=== PATIENT | female | born 1940 ===

== ENCOUNTER 2017-11-05 18:40 | Inpatient (IN) | payer MEDICAID, OTHER ==
[2017-11-05] MEDS ORDERED: Iohexol 240 (50 ml) PO ONE (19:56)
--- NOTE | 2017-11-05 20:14 | ED PDOC ---
HPI: Abdomen Chief Complaint (Provider): right side abdominal pain History Per: Patient History/Exam Limitations: no limitations Associated Symptoms: Loss Of Appetite, Constipation. denies: Fever, Chills, Nausea, Vomiting, Diarrhea Exacerbating Factors: None Alleviating Factors: None Last Bowel Movement: Today Additional History Per: Patient <Patricio Mann - Last Filed: 11/05/17 21:55> <Lynn Wakefield - Last Filed: 11/06/17 17:33> Chief Complaint (Nursing): Abdominal Pain Additional Complaint(s): 77 year old female presents with complaints of right sided abdominal pain for past week, that worsened overnight. Pain is 8/10, non-radiating, she has loss of appetite, without associated nausea or vomiting, no diarrhea, constipation x 1 day-passed hard stool this AM. She tolerated water today but did not eat. She was recently hospitalized here for URI and asthma, discharged on PO antibiotics for 4 days which she completed. She denies medical history. PMD: none Medications: none (Patricio Mann) Supervising Attending Note <Patricio Mann - Last Filed: 11/05/17 21:55> - Supervising Attending Note The Documented history was done by the: Physician Hoe Runner, Attending Physician The documented physical exam was done by the: Physician Hoe Runner, Attending Physician - Attestation: I have personally seen and examined this patient.: Yes I have fully participated in the care of the patient.: Yes I have reviewed all pertinent clinical information: Yes <Lynn Wakefield - Last Filed: 11/06/17 17:33> - Notes: Notes:: RLQ ttp with roluis a SCHMITZ vice president of software development who evaluated pt in ER. 1230a CT scan equivocal for appendicitis but has possible pyelonephritis. Rx'd with Zosyn earlier due to possible appendicitis. AINSLEY Jose for hospitalization. (Lynn Wakefield) Past Medical History - Medical History PMH: No Chronic Diseases - Family History Family History: States: Unknown Family Hx - Immunization History Hx Tetanus Toxoid Vaccination: No Hx Influenza Vaccination: Yes (2013) Hx Pneumococcal Vaccination: No <Patricio Mann - Last Filed: 11/05/17 21:55> <Lynn Wakefield - Last Filed: 11/06/17 17:33> Vital Signs: Last Vital Signs Temp 99 F 11/06/17 16:21 Pulse 82 11/06/17 16:21 Resp 20 11/06/17 16:21 BP 121/72 11/06/17 16:21 Pulse Ox 96 11/06/17 16:21 - Home Medications Home Medications: Ambulatory Orders Medication Instructions Recorded No Known Home Med 11/06/17 - Allergies Allergies/Adverse Reactions: Allergies Allergy/AdvReac Type Severity Reaction Status Date / Time No Known Allergies Allergy Verified 11/05/17 18:46 Review of Systems Constitutional: Negative for: Fever, Chills, Sweats, Weight loss Eyes: Negative for: Pain ENT: Negative for: Ear Pain, Nose Pain Cardiovascular: Negative for: Chest Pain, Palpitations, Orthopnea Respiratory: Negative for: Cough, Shortness of Breath Gastrointestinal: Positive for: Abdominal Pain, Constipation. Negative for: Nausea, Vomiting, Diarrhea, Rectal Pain Genitourinary Female: Negative for: Dysuria, Frequency, Incontinence, Hematuria Neurological: Negative for: Weakness, Numbness, Confusion, Seizures, Altered Mental Status <Patricio Mann - Last Filed: 11/05/17 21:55> Physical Exam - Physical Exam Appears: Positive for: Uncomfortable Head Exam: Positive for: ATRAUMATIC, NORMAL INSPECTION, NORMOCEPHALIC Skin: Positive for: Normal Color, Warm, DRY Eye Exam: Positive for: EOMI, Normal appearance, PERRL ENT: Positive for: Normal ENT Inspection Cardiovascular/Chest: Positive for: Regular Rate, Rhythm. Negative for: Murmur , Bradycardia, Tachycardia Respiratory: Positive for: Normal Breath Sounds. Negative for: Crackles, Rales , Rhonchi, Stridor, Wheezing Gastrointestinal/Abdominal: Positive for: Bowel Sounds (hypoactive), Soft, Tenderness (right lower quadrant, rovsings +, psoas neg). Negative for: Mass, Distended Back: Positive for: Normal Inspection. 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 Negative for: Motor/Sensory Deficits <Patricio Mann - Last Filed: 11/05/17 21:55> - Laboratory Results Result Diagrams: 11/05/17 20:20 11/05/17 20:20 - ECG O2 Sat by Pulse Oximetry: 96 <Patricio Mann - Last Filed: 11/05/17 21:55> - Laboratory Results Result Diagrams: 11/06/17 05:25 11/06/17 05:25 <Lynn Wakefield - Last Filed: 11/06/17 17:33> - Progress ED Course And Treament: 77 year old female with right sided abdominal pain, hx of cholecystectomy, no urinary symptoms. History of multiple abdominal surgeries. RULE OUT APPENDICITIS, unlikely SBO --CBC --CMP --LIPASE --TYLENOL --CT A/P --URINE DIP --BLOOD CULTURE Patient seen and examined with Dr. Wakefield, who agrees with the assessment and plan delineated above. TIME 21:50 Labs reviewed, leukocytosis of 17.9 IV zosyn ordered Case signed out to Dr. Wakefield pending CT Abdomen/Pelvis. (Patricio Mann) Disposition - Disposition Disposition Time: 21:55 <Patricio Mann - Last Filed: 11/05/17 21:55> Counseled Patient/Family Regarding: Studies Performed, Diagnosis - Pt Status Changed To: Hospital Disposition Of: Observation - POA Present On Arrival: None <Lynn Wakefield - Last Filed: 11/06/17 17:33> - Clinical Impression Clinical Impression: Abdominal pain - Disposition Condition: FAIR
[2017-11-05] MEDS ORDERED: Iohexol 240 (50 ml) ONE (20:19)
[2017-11-05 20:29] LABS: BASO # 0.2 K/uL (0.0-0.2); BASO % 0.8 % (0.0-2.0); EOS # 0.2 K/uL (0.0-0.7); EOS % 0.9 % (0.0-4.0); HEMOGLOBIN 12.9 g/dL (12.0-16.0); LYMPH % 16.6 % (20.0-40.0); MEAN CELL VOLUME 88.1 fl (81.0-99.0); MEAN CORPUSCULAR HEMOGLOBIN 29.2 pg (27.0-31.0); MEAN CORPUSCULAR HGB CONC 33.2 g/dL (33.0-37.0); MEAN PLATELET VOLUME 9.4 fl (7.2-11.7); MONO # 1.7 K/uL (0.0-0.8); MONO % 9.5 % (0.0-10.0); NEUT # 12.9 K/uL (1.8-7.0); NEUT % 72.2 % (50.0-75.0); RBC 4.42 Mil/uL (3.80-5.20); RED CELL DISTRIBUTION WIDTH 15.2 % (11.5-14.5); WHITE BLOOD COUNT 17.9 K/uL (4.8-10.8)
[2017-11-05 20:41] LABS: ALBUMIN 3.8 g/dL (3.5-5.0); ALT/SGPT 49 U/L (9-52); AST/SGOT 57 U/L (14-36); BLOOD UREA NITROGEN 14 mg/dl (7-17); CALCIUM 8.9 mg/dL (8.4-10.2); GFR AFRICAN-AMERICAN > 60; GFR NON-AFRICAN AMERICAN > 60; LIPASE 88 U/L (23-300)
[2017-11-05] MEDS ORDERED: Piperacillin/Tazobact 3.375 GM in Sodium Chloride 0.9% 100 ML IV STA (21:15)
[2017-11-05] MEDS ORDERED: Piperacillin/Tazobact 3.375 gm Inj IVPB ONE (21:48)
[2017-11-05] MEDS ORDERED: Iohexol 300 100 ML IJ ONE (22:21)
[2017-11-05] MEDS ORDERED: Sodium Chloride 0.9% 100 ML ONE (22:21)
--- NOTE | 2017-11-06 00:06 | CP.PCM.CON ---
<Kal Conner - Last Filed: 11/06/17 00:31> History of Present Illness - History of Present Illness History of Present Illness: SURGERY CONSULT NOTE FOR DR. SALEEM 77F presents with right lower quadrant abdominal pain that started last night. She states she has never had this pain before. Patient denies nausea, vomiting, fevers, chills. She has not been able to eat since the pain started. She denies any change in bowel function. Denies any urinary symptoms, no dysuria. PMH: denies, possible HTN PSH: , lap cholecystectomy Social: denies tobacco, alcohol, illicit drug use Allergies: NKDA Past Patient History - Past Social History Smoking Status: Never Smoked - CARDIAC Hx Cardiac Disorders: No - PULMONARY Hx Respiratory Disorders: No - NEUROLOGICAL Hx Neurological Disorder: No - HEENT Hx HEENT Problems: No - RENAL Hx Chronic Kidney Disease: No - ENDOCRINE/METABOLIC Hx Endocrine Disorders: No - HEMATOLOGICAL/ONCOLOGICAL Hx Blood Disorders: No - INTEGUMENTARY Hx Dermatological Problems: No - MUSCULOSKELETAL/RHEUMATOLOGICAL Hx Musculoskeletal Disorders: No - GASTROINTESTINAL Hx Gastrointestinal Disorders: No - GENITOURINARY/GYNECOLOGICAL Hx Genitourinary Disorders: No - PSYCHIATRIC Hx Psychophysiologic Disorder: No Hx Substance Use: No Meds Allergies/Adverse Reactions: Allergies Allergy/AdvReac Type Severity Reaction Status Date / Time No Known Allergies Allergy Verified 11/05/17 18:46 Physical Exam - Constitutional Appears: Well, Non-toxic, No Acute Distress - Head Exam Head Exam: ATRAUMATIC - Eye Exam Eye Exam: EOMI, PERRL - Respiratory Exam Respiratory Exam: Clear to Auscultation Bilateral, NORMAL BREATHING PATTERN - Cardiovascular Exam Cardiovascular Exam: REGULAR RHYTHM, +S1, +S2 - GI/Abdominal Exam GI & Abdominal Exam: Soft, Tenderness (right lower quadrant ). absent: Distended, Firm, Guarding, Rebound, Rigid Additional comments: bruise in RLQ from injection - Extremities Exam Extremities exam: Negative for: pedal edema, tenderness - Neurological Exam Neurological exam: Alert, Oriented x3 - Psychiatric Exam Psychiatric exam: Normal Affect, Normal Mood - Skin Skin Exam: Dry, Intact, Normal Color, Warm Results - Vital Signs Recent Vital Signs: Last Vital Signs Temp 98.1 F 11/05/17 18:47 Pulse 88 11/05/17 18:47 Resp 18 11/05/17 18:47 BP 172/97 H 11/05/17 18:47 Pulse Ox 96 11/05/17 21:56 - Labs Result Diagrams: 11/05/17 20:20 11/05/17 20:20 Labs: Laboratory Results - last 24 hr 11/05/17 11/05/17 11/05/17 20:20 20:20 20:20 WBC 17.9 H RBC 4.42 Hgb 12.9 Hct 38.9 MCV 88.1 MCH 29.2 MCHC 33.2 RDW 15.2 H Plt Count 235 MPV 9.4 Neut % (Auto) 72.2 Lymph % (Auto) 16.6 L [place] % (Auto) 9.5 Eos % (Auto) 0.9 Baso % (Auto) 0.8 Neut # (Auto) 12.9 H Lymph # (Auto) 3.0 [place] # (Auto) 1.7 H Eos # (Auto) 0.2 Baso # (Auto) 0.2 Sodium 142 Potassium 4.0 Chloride 101 Carbon Dioxide 26 Anion Gap 19 BUN 14 Creatinine 0.5 L Est GFR ( Amer) > 60 Est GFR (Non-Af Amer) > 60 Random Glucose 111 H Lactic Acid 1.0 Calcium 8.9 Total Bilirubin 0.7 AST 57 H ALT 49 Alkaline Phosphatase 82 Total Protein 7.4 Albumin 3.8 Globulin 3.6 Albumin/Globulin Ratio 1.0 Lipase 88 Assessment & Plan - Assessment and Plan (Free Text) Assessment: 77F with abdominal pain. r/o appendicitis CT - enlarged appendix with no inflammation. right kidney stranding/ inflammation Plan: NPO IVF Pain control Nausea Control Antibiotics UA Re-examine in AM with Dr. Saleem Discussed with Dr. Harper Conner, PGY2 <Benedict Saleem - Last Filed: 11/06/17 15:28> History of Present Illness - History of Present Illness History of Present Illness: Patient was seen and examined at the bedside. Agree with resident's note above. States that she had right sided abdominal pain radiating to the right side of the abdomen for the last 10 days, no fever or chills, no nausea, no vomiting, no diarrhea or constipation. Meds - Medications Medications: Current Medications Acetaminophen (Tylenol 325mg Tab) 650 mg PO Q6 PRN PRN Reason: Fever >100.4 F Sodium Chloride (Sodium Chloride 0.9%) 1,000 mls @ 150 mls/hr IV .Q6H40M ISAC Stop: 11/07/17 00:35 Last Admin: 11/06/17 08:58 Dose: 150 mls/hr Piperacillin Sod/Tazobactam (Sod 3.375 gm/ Sodium Chloride) 100 mls @ 100 mls/ hr IVPB Q6 ISAC PRN Reason: Protocol Last Admin: 11/06/17 15:11 Dose: 100 mls/hr Morphine Sulfate (Morphine) 4 mg IVP Q4 PRN PRN Reason: Pain, severe (8-10) Ondansetron HCl (Zofran Inj) 4 mg IVP Q4 PRN PRN Reason: Nausea/Vomiting Physical Exam - GI/Abdominal Exam Additional comments: soft, very mildly tender in the RUQ and right side of the abdomen, ND, BS+, no rebound, no guarding, well healed scars from prior surgeries - Back Exam Additional comments: very mild right sided CVA tenderness Results - Vital Signs Recent Vital Signs: Last Vital Signs Temp 98.5 F 11/06/17 08:11 Pulse 70 11/06/17 08:11 Resp 18 11/06/17 08:11 BP 105/64 11/06/17 08:11 Pulse Ox 96 11/06/17 08:11 - Labs Result Diagrams: 11/06/17 05:25 11/06/17 05:25 Labs: Laboratory Results - last 24 hr 11/05/17 11/05/17 11/05/17 20:20 20:20 20:20 WBC 17.9 H RBC 4.42 Hgb 12.9 Hct 38.9 MCV 88.1 MCH 29.2 MCHC 33.2 RDW 15.2 H Plt Count 235 MPV 9.4 Neut % (Auto) 72.2 Lymph % (Auto) 16.6 L [place] % (Auto) 9.5 Eos % (Auto) 0.9 Baso % (Auto) 0.8 Neut # (Auto) 12.9 H Lymph # (Auto) 3.0 [place] # (Auto) 1.7 H Eos # (Auto) 0.2 Baso # (Auto) 0.2 PT INR APTT Sodium 142 Potassium 4.0 Chloride 101 Carbon Dioxide 26 Anion Gap 19 BUN 14 Creatinine 0.5 L Est GFR ( Amer) > 60 Est GFR (Non-Af Amer) > 60 Random Glucose 111 H Lactic Acid 1.0 Calcium 8.9 Total Bilirubin 0.7 AST 57 H ALT 49 Alkaline Phosphatase 82 Total Protein 7.4 Albumin 3.8 Globulin 3.6 Albumin/Globulin Ratio 1.0 Lipase 88 Urine Color Urine Clarity Urine pH Ur Specific [place] Urine Protein Urine Glucose (UA) Urine Ketones Urine Blood Urine Nitrate Urine Bilirubin Urine Urobilinogen Ur Leukocyte Esterase Urine RBC (Auto) Urine Microscopic WBC 11/06/17 11/06/17 11/06/17 01:11 01:11 05:25 WBC 14.9 H RBC 4.11 Hgb 12.1 Hct 36.0 MCV 87.7 MCH 29.5 MCHC 33.6 RDW 15.4 H Plt Count 238 MPV 9.3 Neut % (Auto) 65.1 Lymph % (Auto) 22.3 [place] % (Auto) 10.8 H Eos % (Auto) 1.3 Baso % (Auto) 0.5 Neut # (Auto) 9.7 H Lymph # (Auto) 3.3 [place] # (Auto) 1.6 H Eos # (Auto) 0.2 Baso # (Auto) 0.1 PT 11.7 INR 1.0 APTT 28.5 Sodium Potassium Chloride Carbon Dioxide Anion Gap BUN Creatinine Est GFR ( Amer) Est GFR (Non-Af Amer) Random Glucose Lactic Acid Calcium Total Bilirubin AST ALT Alkaline Phosphatase Total Protein Albumin Globulin Albumin/Globulin Ratio Lipase Urine Color Straw Urine Clarity Clear Urine pH 6.0 Ur Specific [place] 1.041 H Urine Protein Negative Urine Glucose (UA) Neg Urine Ketones Negative Urine Blood Negative Urine Nitrate Negative Urine Bilirubin Negative Urine Urobilinogen 0.2-1.0 Ur Leukocyte Esterase Small Urine RBC (Auto) < 1 Urine Microscopic WBC 5 11/06/17 05:25 WBC RBC Hgb Hct MCV MCH MCHC RDW Plt Count MPV Neut % (Auto) Lymph % (Auto) [place] % (Auto) Eos % (Auto) Baso % (Auto) Neut # (Auto) Lymph # (Auto) [place] # (Auto) Eos # (Auto) Baso # (Auto) PT INR APTT Sodium 141 Potassium 3.8 Chloride 104 Carbon Dioxide 25 Anion Gap 16 BUN 10 Creatinine 0.6 L Est GFR ( Amer) > 60 Est GFR (Non-Af Amer) > 60 Random Glucose 94 Lactic Acid Calcium 8.7 Total Bilirubin 1.3 AST 53 H ALT 53 H Alkaline Phosphatase 78 Total Protein 6.5 Albumin 3.3 L Globulin 3.2 Albumin/Globulin Ratio 1.0 Lipase Urine Color Urine Clarity Urine pH Ur Specific [place] Urine Protein Urine Glucose (UA) Urine Ketones Urine Blood Urine Nitrate Urine Bilirubin Urine Urobilinogen Ur Leukocyte Esterase Urine RBC (Auto) Urine Microscopic WBC - Imaging and Cardiology CT scan - abdomen Status: Image reviewed by me, Report reviewed by me Assessment & Plan - Assessment and Plan (Free Text) Plan: - Based on the patient's physical exam and history acute appendicitis is unlikely and most likely patient's symptoms are related to the inflammation around right kidney seen on the CT scan of the abd/pelvis - Start clear liquid diet - pain control - Continue antibiotics - No general surgery intervention at present time - Continue care as per medical team - Repeat labs in am - Will follow
--- NOTE | 2017-11-06 00:27 | CT ---
EXAM: CT Abdomen and Pelvis With Intravenous Contrast EXAM DATE/TIME: 11/05/2017 7:56 PM CLINICAL HISTORY: 77 years old, female; Pain; Abdominal pain; Localized; Right lower quadrant (rlq); Prior surgery; Surgery date: 6+ months; Surgery type: Gb removed. 1; Additional info: Rlq pain h/o multiple surgeries. See phy. Doc. TECHNIQUE: Axial computed tomography images of the abdomen and pelvis with intravenous contrast. All CT scans at this facility use one or more dose reduction techniques, viz.: automated exposure control; ma/kV adjustment per patient size (including targeted exams where dose is matched to indication; i.e. head); or iterative reconstruction technique. Coronal and sagittal reformatted images were created and reviewed. CONTRAST: 90 mL of [id number] administered intravenously. COMPARISON: No relevant prior studies available. FINDINGS: Cholecystectomy clips are present. The liver is normal. The spleen is normal. The pancreas is normal. There is an ill-defined area of low attenuation in the medial posterior right kidney. A small amount of adjacent fluid and stranding is present. Findings suggest pyelonephritis assuming there is no history of trauma (renal laceration would have a similar appearance). The colon is distended with stool consistent with constipation. The appendix is identified axial images 103 - 112, coronal images with 51 -70. The proximal appendix is normal caliber however the mid- distal appendix is dilated measuring up to 10 mm. The tip is normal in caliber. There is lack of intraluminal air. While the dilation and lack of intraluminal air could indicate early obstruction, there is no wall hyperemia or stranding in the periappendiceal fat to suggest active inflammation at this time. IMPRESSION: Ill-defined hypoattenuating area in the right kidney with adjacent fluid/stranding. Either acute infectious/inflammatory process/pyelonephritis or traumatic injury/contusion could have this appearance. Recommend correlation with patient's history and correlation with urinalysis. Dilated appendix with lack of intraluminal air, findings that may be indicative of obstruction however there is no wall hyperemia or stranding in the surrounding fat at least some of which would be expected with acute infectious/inflammatory process especially given the dilation. I suspect this represents the patient's baseline. Correlation with prior studies would be helpful if they exist.
[2017-11-06] MEDS: Sodium Chloride 0.9% 1,000 ML IV SCH ×4 (01:16→20:48)
[2017-11-06 01:22] LABS: URINE BILIRUBIN NEGATIVE (NEGATIVE); URINE BLOOD NEGATIVE (NEGATIVE); URINE CLARITY CLEAR (Clear); URINE COLOR STRAW (YELLOW); URINE GLUCOSE (UA) NEG (Normal); URINE LEUKOCYTE ESTERASE SMALL Leu/uL (Negative); URINE PROTEIN NEGATIVE (NEGATIVE); URINE UROBILINOGEN 0.2-1.0 mg/dL (0.2-1.0)
[2017-11-06 01:32] LABS: PARTIAL THROMBOPLASTIN TIME 28.5 Seconds (25.6-37.1); PROTHROMBIN TIME 11.7 Seconds (9.8-13.1)
[2017-11-06] MEDS: Piperacillin/Tazobact 3.375 GM in Sodium Chloride 0.9% 100 ML IVPB SCH ×4 (04:18→22:03)
[2017-11-06 07:15] LABS: BASO # 0.1 K/uL (0.0-0.2); BASO % 0.5 % (0.0-2.0); EOS # 0.2 K/uL (0.0-0.7); EOS % 1.3 % (0.0-4.0); HEMOGLOBIN 12.1 g/dL (12.0-16.0); LYMPH # 3.3 K/uL (1.0-4.3); LYMPH % 22.3 % (20.0-40.0); MEAN CELL VOLUME 87.7 fl (81.0-99.0); MEAN CORPUSCULAR HEMOGLOBIN 29.5 pg (27.0-31.0); MEAN CORPUSCULAR HGB CONC 33.6 g/dL (33.0-37.0); MEAN PLATELET VOLUME 9.3 fl (7.2-11.7); MONO # 1.6 K/uL (0.0-0.8); MONO % 10.8 % (0.0-10.0); NEUT # 9.7 K/uL (1.8-7.0); NEUT % 65.1 % (50.0-75.0); RBC 4.11 Mil/uL (3.80-5.20); RED CELL DISTRIBUTION WIDTH 15.4 % (11.5-14.5); WHITE BLOOD COUNT 14.9 K/uL (4.8-10.8)
[2017-11-06 07:21] LABS: ALBUMIN 3.3 g/dL (3.5-5.0); ALT/SGPT 53 U/L (9-52); AST/SGOT 53 U/L (14-36); BLOOD UREA NITROGEN 10 mg/dl (7-17); CALCIUM 8.7 mg/dL (8.4-10.2); GFR AFRICAN-AMERICAN > 60; GFR NON-AFRICAN AMERICAN > 60
--- NOTE | 2017-11-06 09:10 | RAD ---
HISTORY: pre-op/abdominalpain COMPARISON: Chest radiograph dated 09/08/2013 FINDINGS: LUNGS: No active pulmonary disease. PLEURA: No significant pleural effusion identified, no pneumothorax apparent. CARDIOVASCULAR: Atherosclerotic aortic calcifications. Cardiomediastinal silhouette within normal limits. OSSEOUS STRUCTURES: Unchanged. VISUALIZED UPPER ABDOMEN: Normal. OTHER FINDINGS: None. IMPRESSION: No active disease.
--- NOTE | 2017-11-06 09:33 | CP.PCM.HP ---
History of Present Illness - History of Present Illness History of Present Illness: Cc: Abdominal pain A 77 year old female who presented to the ED with RLQ abdominal pain, 7/10 in intensity, continuous with no associated diarrhea, positive constipation. Patient states she vomited and has loss of appetite. Patient gives a recent history of upper respiratory tract infection and asthma and treated with antibiotics. On physical exam, there is RLQ tenderness with guarding, no rigidity, no rebound, no distention. The CT scan showed possible appendicitis. The patient was admitted to [facility] unit for further evaluation. Present on Admission - Present on Admission Any Indicators Present on Admission: No Review of Systems - Review of Systems All systems: reviewed and no additional remarkable complaints except (as stated) - Constitutional Constitutional: As Per HPI - Gastrointestinal Gastrointestinal: Abdominal Pain, Constipation, Vomiting. absent: Diarrhea, Loose Stools Past Patient History - Infectious Disease Hx of Infectious Diseases: None - Past Medical History & Family History Past Medical History?: Yes Pertinent Family History: States: Unknown - Past Social History Smoking Status: Never Smoked - CARDIAC Hx Cardiac Disorders: No - PULMONARY Hx Respiratory Disorders: No - NEUROLOGICAL Hx Neurological Disorder: No - HEENT Hx HEENT Problems: No - RENAL Hx Chronic Kidney Disease: No - ENDOCRINE/METABOLIC Hx Endocrine Disorders: No - HEMATOLOGICAL/ONCOLOGICAL Hx Blood Disorders: No - INTEGUMENTARY Hx Dermatological Problems: No - MUSCULOSKELETAL/RHEUMATOLOGICAL Hx Musculoskeletal Disorders: No Hx Falls: No - GASTROINTESTINAL Hx Gastrointestinal Disorders: No - GENITOURINARY/GYNECOLOGICAL Hx Genitourinary Disorders: No - PSYCHIATRIC Hx Psychophysiologic Disorder: No Hx Substance Use: No - SURGICAL HISTORY Hx Surgeries: No - ANESTHESIA Hx Anesthesia: No Hx Anesthesia Reactions: No Hx Malignant Hyperthermia: No Has any member of the family had a problem w/ anesthesia?: No Meds Home Medications: Home Medication List Medication Instructions Recorded Confirmed Type Amoxicillin/Clavulanate [Augmentin 1 tab PO Q12 #10 tab 11/08/17 Rx 875 MG-125 MG] Allergies/Adverse Reactions: Allergies Allergy/AdvReac Type Severity Reaction Status Date / Time No Known Allergies Allergy Verified 11/05/17 18:46 Physical Exam - Constitutional Appears: Well, No Acute Distress - Head Exam Head Exam: ATRAUMATIC, NORMOCEPHALIC - Eye Exam Eye Exam: EOMI, Normal appearance, PERRL Pupil Exam: NORMAL ACCOMODATION - ENT Exam ENT Exam: Mucous Membranes Moist, Normal Exam - Neck Exam Neck exam: Positive for: Normal Inspection - Respiratory Exam Respiratory Exam: Clear to Auscultation Bilateral, NORMAL BREATHING PATTERN - Cardiovascular Exam Cardiovascular Exam: REGULAR RHYTHM, +S1, +S2 - GI/Abdominal Exam GI & Abdominal Exam: Guarding, Normal Bowel Sounds, Soft, Tenderness - Rectal Exam Rectal Exam: Deferred - Extremities Exam Extremities exam: Positive for: full ROM, normal inspection, pedal pulses present - Back Exam Back exam: NORMAL INSPECTION - Neurological Exam Neurological exam: Alert, CN II-XII Intact, Oriented x3, Reflexes Normal - Psychiatric Exam Psychiatric exam: Normal Affect, Normal Mood - Skin Skin Exam: Dry, Normal Color, Warm Results - Vital Signs Recent Vital Signs: Last Vital Signs Temp 98.5 F 11/06/17 08:11 Pulse 70 11/06/17 08:11 Resp 18 11/06/17 08:11 BP 105/64 11/06/17 08:11 Pulse Ox 96 11/06/17 08:11 - Labs Result Diagrams: 11/08/17 05:20 11/08/17 05:20 Labs: Laboratory Results - last 24 hr 11/05/17 11/05/17 11/05/17 20:20 20:20 20:20 WBC 17.9 H RBC 4.42 Hgb 12.9 Hct 38.9 MCV 88.1 MCH 29.2 MCHC 33.2 RDW 15.2 H Plt Count 235 MPV 9.4 Neut % (Auto) 72.2 Lymph % (Auto) 16.6 L [place] % (Auto) 9.5 Eos % (Auto) 0.9 Baso % (Auto) 0.8 Neut # (Auto) 12.9 H Lymph # (Auto) 3.0 [place] # (Auto) 1.7 H Eos # (Auto) 0.2 Baso # (Auto) 0.2 PT INR APTT Sodium 142 Potassium 4.0 Chloride 101 Carbon Dioxide 26 Anion Gap 19 BUN 14 Creatinine 0.5 L Est GFR ( Amer) > 60 Est GFR (Non-Af Amer) > 60 Random Glucose 111 H Lactic Acid 1.0 Calcium 8.9 Total Bilirubin 0.7 AST 57 H ALT 49 Alkaline Phosphatase 82 Total Protein 7.4 Albumin 3.8 Globulin 3.6 Albumin/Globulin Ratio 1.0 Lipase 88 Urine Color Urine Clarity Urine pH Ur Specific [place] Urine Protein Urine Glucose (UA) Urine Ketones Urine Blood Urine Nitrate Urine Bilirubin Urine Urobilinogen Ur Leukocyte Esterase Urine RBC (Auto) Urine Microscopic WBC 11/06/17 11/06/17 11/06/17 01:11 01:11 05:25 WBC 14.9 H RBC 4.11 Hgb 12.1 Hct 36.0 MCV 87.7 MCH 29.5 MCHC 33.6 RDW 15.4 H Plt Count 238 MPV 9.3 Neut % (Auto) 65.1 Lymph % (Auto) 22.3 [place] % (Auto) 10.8 H Eos % (Auto) 1.3 Baso % (Auto) 0.5 Neut # (Auto) 9.7 H Lymph # (Auto) 3.3 [place] # (Auto) 1.6 H Eos # (Auto) 0.2 Baso # (Auto) 0.1 PT 11.7 INR 1.0 APTT 28.5 Sodium Potassium Chloride Carbon Dioxide Anion Gap BUN Creatinine Est GFR ( Amer) Est GFR (Non-Af Amer) Random Glucose Lactic Acid Calcium Total Bilirubin AST ALT Alkaline Phosphatase Total Protein Albumin Globulin Albumin/Globulin Ratio Lipase Urine Color Straw Urine Clarity Clear Urine pH 6.0 Ur Specific [place] 1.041 H Urine Protein Negative Urine Glucose (UA) Neg Urine Ketones Negative Urine Blood Negative Urine Nitrate Negative Urine Bilirubin Negative Urine Urobilinogen 0.2-1.0 Ur Leukocyte Esterase Small Urine RBC (Auto) < 1 Urine Microscopic WBC 5 11/06/17 05:25 WBC RBC Hgb Hct MCV MCH MCHC RDW Plt Count MPV Neut % (Auto) Lymph % (Auto) [place] % (Auto) Eos % (Auto) Baso % (Auto) Neut # (Auto) Lymph # (Auto) [place] # (Auto) Eos # (Auto) Baso # (Auto) PT INR APTT Sodium 141 Potassium 3.8 Chloride 104 Carbon Dioxide 25 Anion Gap 16 BUN 10 Creatinine 0.6 L Est GFR ( Amer) > 60 Est GFR (Non-Af Amer) > 60 Random Glucose 94 Lactic Acid Calcium 8.7 Total Bilirubin 1.3 AST 53 H ALT 53 H Alkaline Phosphatase 78 Total Protein 6.5 Albumin 3.3 L Globulin 3.2 Albumin/Globulin Ratio 1.0 Lipase Urine Color Urine Clarity Urine pH Ur Specific [place] Urine Protein Urine Glucose (UA) Urine Ketones Urine Blood Urine Nitrate Urine Bilirubin Urine Urobilinogen Ur Leukocyte Esterase Urine RBC (Auto) Urine Microscopic WBC Assessment & Plan (1) Acute appendicitis Assessment and Plan: IV antibiotics started IVF NPO Surgery consult Status: Acute
--- NOTE | 2017-11-06 11:48 | CARD ---
APPROVED REPORT EKG Measurement Heart [id number] <Conclusion> Normal sinus rhythm Possible Left atrial enlargement Borderline ECG
[2017-11-07] MEDS: Piperacillin/Tazobact 3.375 GM in Sodium Chloride 0.9% 100 ML IVPB SCH ×4 (03:00→22:31)
[2017-11-07 07:16] LABS: BASO # 0.1 K/uL (0.0-0.2); BASO % 0.7 % (0.0-2.0); EOS # 0.2 K/uL (0.0-0.7); EOS % 1.7 % (0.0-4.0); HEMOGLOBIN 11.9 g/dL (12.0-16.0); LYMPH # 2.7 K/uL (1.0-4.3); LYMPH % 23.3 % (20.0-40.0); MEAN CORPUSCULAR HEMOGLOBIN 29.8 pg (27.0-31.0); MEAN CORPUSCULAR HGB CONC 34.2 g/dL (33.0-37.0); MEAN PLATELET VOLUME 8.9 fl (7.2-11.7); MONO # 1.2 K/uL (0.0-0.8); MONO % 10.5 % (0.0-10.0); NEUT # 7.4 K/uL (1.8-7.0); NEUT % 63.8 % (50.0-75.0); RBC 3.99 Mil/uL (3.80-5.20); RED CELL DISTRIBUTION WIDTH 15.5 % (11.5-14.5); WHITE BLOOD COUNT 11.6 K/uL (4.8-10.8)
--- NOTE | 2017-11-07 07:51 | CP.PCM.PN ---
<Susu Del Rio - Last Filed: 11/07/17 07:49> Subjective - Date & Time of Evaluation Date of Evaluation: 11/07/17 Time of Evaluation: 07:49 - Subjective Subjective: Surgery Pt seen and examined. No acute events. c/o low abd pain. Denies fever, nausea, vomiting, diarrhea, chest pain, SOB. Objective - Vital Signs/Intake and Output Vital Signs (last 24 hours): Temp Pulse Resp BP Pulse Ox 98.3 F 69 20 110/67 96 11/07/17 00:04 11/07/17 00:04 11/07/17 00:04 11/07/17 00:04 11/07/17 00:04 - Medications Medications: Current Medications Acetaminophen (Tylenol 325mg Tab) 650 mg PO Q6 PRN PRN Reason: Fever >100.4 F Piperacillin Sod/Tazobactam (Sod 3.375 gm/ Sodium Chloride) 100 mls @ 100 mls/ hr IVPB Q6 ISAC PRN Reason: Protocol Last Admin: 11/07/17 03:00 Dose: 100 mls/hr Morphine Sulfate (Morphine) 4 mg IVP Q4 PRN PRN Reason: Pain, severe (8-10) Ondansetron HCl (Zofran Inj) 4 mg IVP Q4 PRN PRN Reason: Nausea/Vomiting - Labs Labs: 11/06/17 05:25 11/06/17 05:25 PT 11.7 Seconds (9.8-13.1) 11/06/17 01:11 INR 1.0 (0.9-1.2) 11/06/17 01:11 APTT 28.5 Seconds (25.6-37.1) 11/06/17 01:11 - Constitutional Appears: No Acute Distress - Head Exam Head Exam: ATRAUMATIC, NORMAL INSPECTION, NORMOCEPHALIC - Eye Exam Eye Exam: EOMI, Normal appearance, PERRL Pupil Exam: NORMAL ACCOMODATION, PERRL - ENT Exam ENT Exam: Mucous Membranes Moist, Normal Exam - Neck Exam Neck Exam: Full ROM, Normal Inspection. absent: Lymphadenopathy - Respiratory Exam Respiratory Exam: Clear to Ausculation Bilateral, NORMAL BREATHING PATTERN - Cardiovascular Exam Cardiovascular Exam: REGULAR RHYTHM, +S1, +S2. absent: Murmur - GI/Abdominal Exam GI & Abdominal Exam: Soft, Tenderness, Normal Bowel Sounds. absent: Distended, Firm, Guarding, Rigid, Hernia, Mass, Pulsatile Mass, Rebound Additional comments: b/l low abd TTP. - Exam Exam: NORMAL INSPECTION - Extremities Exam Extremities Exam: Full ROM, Normal Capillary Refill, Normal Inspection. absent : Joint Swelling, Pedal Edema - Back Exam Back Exam: NORMAL INSPECTION - Neurological Exam Neurological Exam: Alert, Awake, CN II-XII Intact, Normal Gait, Oriented x3 - Psychiatric Exam Psychiatric exam: Normal Affect, Normal Mood - Skin Skin Exam: Dry, Intact, Normal Color, Warm Assessment and Plan - Assessment and Plan (Free Text) Assessment: - Based on the patient's physical exam and history acute appendicitis is unlikely and most likely patient's symptoms are related to the inflammation around right kidney seen on the CT scan of the abd/pelvis - Advance diet as tolerated - pain control - Continue antibiotics - No general surgery intervention at present time - Continue care as per medical team - Repeat labs in am - Will follow Will DW Dr. Saleem <Bendeict Saleem - Last Filed: 11/07/17 17:07> Subjective - Date & Time of Evaluation Time of Evaluation: 16:40 - Subjective Subjective: Patient was seen and examined at the bedside. Agree with resident's note above. Tolerating clear liquid diet. Objective - Vital Signs/Intake and Output Vital Signs (last 24 hours): Temp Pulse Resp BP Pulse Ox 99.1 F 74 20 135/72 97 11/07/17 16:09 11/07/17 16:09 11/07/17 16:09 11/07/17 16:09 11/07/17 16:09 - Medications Medications: Current Medications Acetaminophen (Tylenol 325mg Tab) 650 mg PO Q6 PRN PRN Reason: Fever >100.4 F Piperacillin Sod/Tazobactam (Sod 3.375 gm/ Sodium Chloride) 100 mls @ 100 mls/ hr IVPB Q6 ISAC PRN Reason: Protocol Last Admin: 11/07/17 15:46 Dose: 100 mls/hr Morphine Sulfate (Morphine) 4 mg IVP Q4 PRN PRN Reason: Pain, severe (8-10) Last Admin: 11/07/17 15:49 Dose: 4 mg Ondansetron HCl (Zofran Inj) 4 mg IVP Q4 PRN PRN Reason: Nausea/Vomiting - Labs Labs: 11/07/17 05:30 11/07/17 05:30 PT 11.7 Seconds (9.8-13.1) 11/06/17 01:11 INR 1.0 (0.9-1.2) 11/06/17 01:11 APTT 28.5 Seconds (25.6-37.1) 11/06/17 01:11 Assessment and Plan - Assessment and Plan (Free Text) Plan: - start regular diet - Pain control - No general surgery intervention at present time - Continue care as per medical team - Repeat labs in am - Will follow
[2017-11-07 07:56] LABS: ALBUMIN 3.2 g/dL (3.5-5.0); ALT/SGPT 43 U/L (9-52); AST/SGOT 53 U/L (14-36); BLOOD UREA NITROGEN 6 mg/dl (7-17); CALCIUM 8.8 mg/dL (8.4-10.2); GFR AFRICAN-AMERICAN > 60; GFR NON-AFRICAN AMERICAN > 60
--- NOTE | 2017-11-07 22:35 | CP.PCM.PN ---
Subjective - Date & Time of Evaluation Date of Evaluation: 11/07/17 Time of Evaluation: 11:35 - Subjective Subjective: Patient seen and examined at bedside. Has slight RLQ pain Denies fever, chills, N/V/D/C Objective - Vital Signs/Intake and Output Vital Signs (last 24 hours): Temp Pulse Resp BP Pulse Ox 99.1 F 74 20 135/72 97 11/07/17 16:09 11/07/17 16:09 11/07/17 16:09 11/07/17 16:09 11/07/17 16:09 - Medications Medications: Current Medications Acetaminophen (Tylenol 325mg Tab) 650 mg PO Q6 PRN PRN Reason: Fever >100.4 F Piperacillin Sod/Tazobactam (Sod 3.375 gm/ Sodium Chloride) 100 mls @ 100 mls/ hr IVPB Q6 ISAC PRN Reason: Protocol Last Admin: 11/07/17 22:31 Dose: 100 mls/hr Morphine Sulfate (Morphine) 4 mg IVP Q4 PRN PRN Reason: Pain, severe (8-10) Last Admin: 11/07/17 15:49 Dose: 4 mg Ondansetron HCl (Zofran Inj) 4 mg IVP Q4 PRN PRN Reason: Nausea/Vomiting - Labs Labs: 11/07/17 05:30 11/07/17 05:30 PT 11.7 Seconds (9.8-13.1) 11/06/17 01:11 INR 1.0 (0.9-1.2) 11/06/17 01:11 APTT 28.5 Seconds (25.6-37.1) 11/06/17 01:11 - Constitutional Appears: Well, No Acute Distress - Head Exam Head Exam: ATRAUMATIC - Respiratory Exam Respiratory Exam: Clear to Ausculation Bilateral, NORMAL BREATHING PATTERN - Cardiovascular Exam Cardiovascular Exam: REGULAR RHYTHM, +S1, +S2 - GI/Abdominal Exam GI & Abdominal Exam: Tenderness (RLQ), Normal Bowel Sounds - Neurological Exam Neurological Exam: Alert, Normal Gait, Oriented x3 - Psychiatric Exam Psychiatric exam: Normal Affect, Normal Mood - Skin Skin Exam: Normal Color, Warm Assessment and Plan (1) Acute appendicitis Assessment & Plan: Continue IV antibiotics IVF Per surgery team, no acute appendicitis Advance diet Leukocytosis improved Monitor Status: Acute
[2017-11-08] MEDS: Piperacillin/Tazobact 3.375 GM in Sodium Chloride 0.9% 100 ML IVPB SCH ×3 (03:24→16:00)
[2017-11-08 06:55] LABS: BASO # 0.1 K/uL (0.0-0.2); BASO % 0.6 % (0.0-2.0); EOS # 0.3 K/uL (0.0-0.7); EOS % 2.5 % (0.0-4.0); HEMOGLOBIN 12.3 g/dL (12.0-16.0); LYMPH % 29.1 % (20.0-40.0); MEAN CELL VOLUME 88.3 fl (81.0-99.0); MEAN CORPUSCULAR HEMOGLOBIN 30.1 pg (27.0-31.0); MEAN CORPUSCULAR HGB CONC 34.1 g/dL (33.0-37.0); MONO % 9.7 % (0.0-10.0); NEUT % 58.1 % (50.0-75.0); NRBC % 0.1 % (0.0-0.0); RBC 4.09 Mil/uL (3.80-5.20); RED CELL DISTRIBUTION WIDTH 15.2 % (11.5-14.5); WHITE BLOOD COUNT 10.4 K/uL (4.8-10.8)
[2017-11-08 07:35] LABS: ALBUMIN 3.4 g/dL (3.5-5.0); ALT/SGPT 42 U/L (9-52); AST/SGOT 41 U/L (14-36); BLOOD UREA NITROGEN 11 mg/dl (7-17); GFR AFRICAN-AMERICAN > 60; GFR NON-AFRICAN AMERICAN > 60
--- NOTE | 2017-11-08 09:11 | CP.PCM.PN ---
<Kal Conner - Last Filed: 11/08/17 09:08> Subjective - Date & Time of Evaluation Date of Evaluation: 11/08/17 Time of Evaluation: 09:08 - Subjective Subjective: SURGERY NOTE FOR DR. SALEEM 77F seen and examined at bedside, Patient continues to have right sided abdominal pain, denies nausea, vomiting, fevers or chills. Tolerating regular diet. Objective - Vital Signs/Intake and Output Vital Signs (last 24 hours): Temp Pulse Resp BP Pulse Ox 98.2 F 68 20 126/72 95 11/08/17 08:22 11/08/17 08:22 11/08/17 08:22 11/08/17 08:22 11/08/17 08:22 - Medications Medications: Current Medications Acetaminophen (Tylenol 325mg Tab) 650 mg PO Q6 PRN PRN Reason: Fever >100.4 F Piperacillin Sod/Tazobactam (Sod 3.375 gm/ Sodium Chloride) 100 mls @ 100 mls/ hr IVPB Q6 ISAC PRN Reason: Protocol Last Admin: 11/08/17 03:24 Dose: 100 mls/hr Morphine Sulfate (Morphine) 4 mg IVP Q4 PRN PRN Reason: Pain, severe (8-10) Last Admin: 11/07/17 15:49 Dose: 4 mg Ondansetron HCl (Zofran Inj) 4 mg IVP Q4 PRN PRN Reason: Nausea/Vomiting - Labs Labs: 11/08/17 05:20 11/08/17 05:20 PT 11.7 Seconds (9.8-13.1) 11/06/17 01:11 INR 1.0 (0.9-1.2) 11/06/17 01:11 APTT 28.5 Seconds (25.6-37.1) 11/06/17 01:11 - Constitutional Appears: Non-toxic, No Acute Distress - Respiratory Exam Respiratory Exam: Clear to Ausculation Bilateral, NORMAL BREATHING PATTERN - Cardiovascular Exam Cardiovascular Exam: REGULAR RHYTHM, +S1, +S2 - GI/Abdominal Exam GI & Abdominal Exam: Soft, Tenderness (positive lloyds). absent: Distended, Firm, Guarding, Rigid, Rebound - Neurological Exam Neurological Exam: Alert, Awake Assessment and Plan - Assessment and Plan (Free Text) Assessment: 77F with right pyelonephritis Plan: - continue antibiotics - pain control - continue diet - No surgical intervention at this time Discussed with Dr. Harper Conner, PGY2 <Benedict Saleem - Last Filed: 11/08/17 13:32> Subjective - Date & Time of Evaluation Time of Evaluation: 11:20 - Subjective Subjective: Patient was seen and examined at the bedside. Agree with resident's note above. Objective - Vital Signs/Intake and Output Vital Signs (last 24 hours): Temp Pulse Resp BP Pulse Ox 98.2 F 68 20 126/72 95 11/08/17 08:22 11/08/17 08:22 11/08/17 08:22 11/08/17 08:22 11/08/17 08:22 - Medications Medications: Current Medications Acetaminophen (Tylenol 325mg Tab) 650 mg PO Q6 PRN PRN Reason: Fever >100.4 F Piperacillin Sod/Tazobactam (Sod 3.375 gm/ Sodium Chloride) 100 mls @ 100 mls/ hr IVPB Q6 ISAC PRN Reason: Protocol Last Admin: 11/08/17 09:22 Dose: 100 mls/hr Morphine Sulfate (Morphine) 4 mg IVP Q4 PRN PRN Reason: Pain, severe (8-10) Last Admin: 11/07/17 15:49 Dose: 4 mg Ondansetron HCl (Zofran Inj) 4 mg IVP Q4 PRN PRN Reason: Nausea/Vomiting - Labs Labs: 11/08/17 05:20 11/08/17 05:20 PT 11.7 Seconds (9.8-13.1) 11/06/17 01:11 INR 1.0 (0.9-1.2) 11/06/17 01:11 APTT 28.5 Seconds (25.6-37.1) 11/06/17 01:11 Assessment and Plan - Assessment and Plan (Free Text) Plan: - Continue diet - continue antibiotics - No general surgery intervention at present time - Continue care as per medical team - General surgery will sign off - please re-consult as needed
[2017-11-08 16:12] VITALS: BP 105/52; PULSE 74; RESP 18; TEMP 97.9; O2SAT 96
--- NOTE | 2017-11-09 05:44 | CP.PCM.DIS ---
Provider - Provider Date of Admission: 11/06/17 00:22 Attending physician: Adrianna Jose MD Time Spent in preparation of Discharge (in minutes): 35 Diagnosis - Discharge Diagnosis (1) Acute appendicitis Status: Acute (2) Intractable abdominal pain Status: Acute Hospital Course - Lab Results Lab Results: Micro Results 11/05/17 20:20 Blood-Venous Blood Culture - Preliminary NO GROWTH AFTER 3 DAYS 11/05/17 20:20 Blood-Venous Blood Culture - Preliminary NO GROWTH AFTER 3 DAYS 11/06/17 09:10 Urine,Clean Catch Urine Culture - Final No Growth (<1,000 CFU/ML) Most Recent Lab Values WBC 10.4 K/uL (4.8-10.8) 11/08/17 05:20 RBC 4.09 Mil/uL (3.80-5.20) 11/08/17 05:20 Hgb 12.3 g/dL (12.0-16.0) 11/08/17 05:20 Hct 36.1 % (34.0-47.0) 11/08/17 05:20 MCV 88.3 fl (81.0-99.0) 11/08/17 05:20 MCH 30.1 pg (27.0-31.0) 11/08/17 05:20 MCHC 34.1 g/dL (33.0-37.0) 11/08/17 05:20 RDW 15.2 % (11.5-14.5) H 11/08/17 05:20 Plt Count 237 K/uL (130-400) 11/08/17 05:20 MPV 9.0 fl (7.2-11.7) 11/08/17 05:20 Neut % (Auto) 58.1 % (50.0-75.0) 11/08/17 05:20 Lymph % (Auto) 29.1 % (20.0-40.0) 11/08/17 05:20 [place] % (Auto) 9.7 % (0.0-10.0) 11/08/17 05:20 Eos % (Auto) 2.5 % (0.0-4.0) 11/08/17 05:20 Baso % (Auto) 0.6 % (0.0-2.0) 11/08/17 05:20 Neut # (Auto) 6.0 K/uL (1.8-7.0) 11/08/17 05:20 Lymph # (Auto) 3.0 K/uL (1.0-4.3) 11/08/17 05:20 [place] # (Auto) 1.0 K/uL (0.0-0.8) H 11/08/17 05:20 Eos # (Auto) 0.3 K/uL (0.0-0.7) 11/08/17 05:20 Baso # (Auto) 0.1 K/uL (0.0-0.2) 11/08/17 05:20 PT 11.7 Seconds (9.8-13.1) 11/06/17 01:11 INR 1.0 (0.9-1.2) 11/06/17 01:11 APTT 28.5 Seconds (25.6-37.1) 11/06/17 01:11 Sodium 142 mmol/l (132-148) 11/08/17 05:20 Potassium 3.9 MMOL/L (3.6-5.0) 11/08/17 05:20 Chloride 104 mmol/L (98-107) 11/08/17 05:20 Carbon Dioxide 24 mmol/L (22-30) 11/08/17 05:20 Anion Gap 18 (10-20) 11/08/17 05:20 BUN 11 mg/dl (7-17) 11/08/17 05:20 Creatinine 0.7 mg/dl (0.7-1.2) 11/08/17 05:20 Est GFR ( Amer) > 60 11/08/17 05:20 Est GFR (Non-Af Amer) > 60 11/08/17 05:20 Random Glucose 85 mg/dL (65-105) 11/08/17 05:20 Lactic Acid 1.0 MMOL/L (0.7-2.1) 11/05/17 20:20 Calcium 9.0 mg/dL (8.4-10.2) 11/08/17 05:20 Total Bilirubin 0.8 mg/dl (0.2-1.3) 11/08/17 05:20 AST 41 U/L (14-36) H D 11/08/17 05:20 ALT 42 U/L (9-52) 11/08/17 05:20 Alkaline Phosphatase 74 U/L (38-126) 11/08/17 05:20 Total Protein 6.9 G/DL (6.3-8.2) 11/08/17 05:20 Albumin 3.4 g/dL (3.5-5.0) L 11/08/17 05:20 Globulin 3.5 gm/dL (2.2-3.9) 11/08/17 05:20 Albumin/Globulin Ratio 1.0 (1.0-2.1) 11/08/17 05:20 Lipase 88 U/L (23-300) 11/05/17 20:20 Urine Color Straw (YELLOW) 11/06/17 01:11 Urine Clarity Clear (Clear) 11/06/17 01:11 Urine pH 6.0 (5.0-8.0) 11/06/17 01:11 Ur Specific [place] 1.041 (1.003-1.030) H 11/06/17 01:11 Urine Protein Negative mg/dL (NEGATIVE) 11/06/17 01:11 Urine Glucose (UA) Neg mg/dL (Normal) 11/06/17 01:11 Urine Ketones Negative mg/dL (NEGATIVE) 11/06/17 01:11 Urine Blood Negative (NEGATIVE) 11/06/17 01:11 Urine Nitrate Negative (NEGATIVE) 11/06/17 01:11 Urine Bilirubin Negative (NEGATIVE) 11/06/17 01:11 Urine Urobilinogen 0.2-1.0 mg/dL (0.2-1.0) 11/06/17 01:11 Ur Leukocyte Esterase [place]/uL (Negative) 11/06/17 01:11 Urine RBC (Auto) < 1 /hpf (0-3) 11/06/17 01:11 Urine Microscopic WBC 5 /hpf (0-5) 11/06/17 01:11 - Hospital Course Hospital Course: A 77 year old female admitted for RLQ abdominal pain. Initial CT report showed possible appendicitis. Patient was seen by surgery and determined not to have acute appendicitis. Patient was treated with IV antibiotics in light of RLQ pain and leukocytosis. The patient tolerated treatment well and leukocytosis improved. The patient was discharged home on oral antibiotics. Discharge Exam - Head Exam Head Exam: ATRAUMATIC, NORMAL INSPECTION, NORMOCEPHALIC - Respiratory Exam Respiratory Exam: Clear to PA & Lateral, NORMAL BREATHING PATTERN - Cardiovascular Exam Cardiovascular Exam: REGULAR RHYTHM, +S1, +S2 - GI/Abdominal Exam GI & Abdominal Exam: Normal Bowel Sounds, Soft - Neurological Exam Neurological exam: Alert, CN II-XII Intact, Oriented x3 - Psychiatric Exam Psychiatric exam: Normal Affect, Normal Mood - Skin Skin Exam: Normal Color, Warm Discharge Plan - Discharge Medications Prescriptions: Amoxicillin/Clavulanate [Augmentin 875 MG-125 MG] 1 tab PO Q12 #10 tab - Follow Up Plan Condition: STABLE Disposition: HOME/ ROUTINE Instructions: Acute Abdomen (Belly Pain), Adult (DC) Additional Instructions: Complete all antibiotics. Follow up with PMD in 1 week Referrals: Benedict Saleem MD [Staff Provider] -
--- NOTE | 2017-11-10 15:06 | PQF GENQUE ---
Dr. 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 What is the principal diagnosis for this case? This form is a permanent part of the medical record Clarification of your documentation is requested to better reflect the severity of illness and intensity of treatment of your patient. Indicators present [] Specify: [] [] Specify: [] [] Specify: [] [] Specify: [] Location in the medical record that reflects the above clinical findings: [] Treatment Provided: [] PHYSICIAN'S RESPONSE Based on your medical judgment of the clinical indicators outlined above please clarify the following: [X] Practitioner response: Acute Appendicitis, and Possible Acute Pyelonephritis [] If unable to determine, please check the box, sign and date. Present On Admission (POA) Indicator: [X] Present at the time of admission [] Not present at the time of admission [] Clinically Undetermined In responding to this query, please exercise your independent professional judgment. The fact that a question is asked does not imply that any particular answer is desired or expected. Thank you for your clarification on this documentation. 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
== END 2017-11-08 18:40 | disposition home or self-care (01) | DRG 320 ==
LOC: H.ER 18:40 → H.ERHOLD 11-06 00:22 → H.MEDSURG1 11-06 02:58
PROVIDERS: ADMIT Internal Medicine; ATTEND Internal Medicine
DX: N10 Acute pyelonephritis (principal); K35.80 Unspecified acute appendicitis; J45.909 Unspecified asthma, uncomplicated; K59.00 Constipation, unspecified